=== PATIENT | female | born 1970 | race Caucasian/White ===

== ENCOUNTER 2021-02-04 07:31 | Observation (INO) | payer BC ==
[2021-01-29 11:56] LABS: CLARITY,URINE CLEAR (Clear); COLOR,URINE YELLOW (Yellow); GLUCOSE, URINE NEGATIVE (Neg); KETONES,URINE NEGATIVE (Neg); LEUKOCYTE ESTERASE ,URINE NEGATIVE (Neg); NITRITES, URINE NEGATIVE (Neg); OCCULT BLOOD,URINE TRACE-INTACT (Neg); PROTEIN,URINE NEGATIVE (Neg); UROBILINOGEN,URINE 0.2 E.U/dL (0.2-1.0)
[2021-01-29 12:02] LABS: RBC,URINE 0-2 /HPF (0-2); UA COLLECTION TYPE NON-SPECIFIED; WBC,URINE NONE SEEN /HPF (0-4)
[2021-01-29 12:03] LABS: BACTERIA,URINE NONE SEEN /HPF (Neg); MUCUS STRANDS NONE SEEN /LPF (Neg); SQUAMOUS EPITHELIAL CELL,UR FEW /LPF (FEW)
[2021-01-29 12:03] LABS: BASOPHILS % (AUTO) 0.5 % (0-1); EOSINOPHILS # (AUTO) 0.1 X10'3 (0-0.9); EOSINOPHILS % (AUTO) 0.9 % (0-6); LYMPHOCYTES # (AUTO) 1.6 X10'3 (1.1-4.8); LYMPHOCYTES % (AUTO) 25.7 % (21-51); MEAN CORPUSCULAR HEMOGLOBIN 28.3 PG (27.0-31.0); MEAN CORPUSCULAR HGB CONC 32.7 g/dL (33.0-36.5); MEAN CORPUSCULAR VOLUME 86.7 FL (78-98); MONOCYTES # (AUTO) 0.5 X10'3 (0-0.9); MONOCYTES % (AUTO) 8.4 % (2-12); NEUTROPHILS # (AUTO) 3.9 X10'3 (1.8-7.7); NEUTROPHILS % (AUTO) 64.5 % (42-75); PRE OP HEMATOCRIT 29.4 % (35.0-45.0); PRE OP PLATELET COUNT 504 X10'3 (140-440); RED BLOOD COUNT 3.39 X10'6 (4.20-5.60); RED CELL DISTRIBUTION WIDTH 14.8 % (11.5-14.5)
[2021-01-29 12:07] LABS: PRE OP HEMOGLOBIN 9.6 g/dL (12.0-16.0)
[2021-01-29 12:09] LABS: ALBUMIN 3.6 G/DL (3.4-5.0); ALKALINE PHOSPHATASE 85 IU/L (46-116); BLOOD UREA NITROGEN 9 MG/DL (7-18); BUN/CREATININE RATIO 11.4 (6.6-38.0); CALCIUM 8.1 MG/DL (8.5-10.1); CHLORIDE 103 MMOL/L (99-107); CREATININE 0.79 MG/DL (0.40-0.90); PRE OP ALT 18 U/L (30-65); PRE OP ANION GAP 9 (8-16); PRE OP AST 14 U/L (10-37); PRE OP BILIRUB, TOTAL 0.2 MG/DL (0.0-1.0); PRE OP GLUCOSE 94 MG/DL (70-104); PRE OP POTASSIUM 3.8 MMOL/L (3.4-5.1); PRE OP SODIUM 140 MMOL/L (135-145); TOTAL PROTEIN 7.2 G/DL (6.4-8.2); eGFR 76 ML/MIN
[2021-01-29 12:25] LABS: HCG SERUM QL NEGATIVE
[2021-02-04] VITALS (12 sets, daily range): BP systolic 101–140; BP diastolic 54–73
[~2021-02-04] VITALS: Ht 157.5 cm; Wt 62.0 kg
[~2021-02-04 07:31] MED LIST: MULT-1085 PO; albuterol 2.5 MG/3 ML nebule NEB ONE; ceFOXitin 2GM-NS 100mL ADDvant 100 ML IV ONE; famotidine 20mg tablet PO ONE; ringers solution, lacted 1,000 ML IV SCH
[2021-02-04] MEDS ORDERED: BUPIVAcaine HCl 0.25%/EPInephrine 1:200,000 inj. 10 ML VIAL ONE (09:49)
[2021-02-04] MEDS ORDERED: vasoPRESSIN 20 units/ml inj. ONE (09:49)
[2021-02-04] MEDS ORDERED: BUPIVAcaine/PF 2.5mg/ml (0.25%) 10ml vial ONE (09:49)
[2021-02-04] MEDS ORDERED: fentaNYL /PF 50mcg/ml 5ml ampule ONE (10:10)
[2021-02-04] MEDS ORDERED: ondansetron/PF 4mg/2ml inj IV PRN ×2 (10:15→12:10)
[2021-02-04] MEDS ORDERED: proCHLORperazine 10 MG/2 ml inj IV PRN (10:15)
[2021-02-04] MEDS ORDERED: meperidine/PF 25mg/ml syringe IV PRN ×3 (10:15)
[2021-02-04] MEDS ORDERED: morphine 2 MG/ML inj. syringe IV PRN (10:15)
[2021-02-04] MEDS ORDERED: ringers solution, lacted 1,000 ML IV SCH (10:15)
[2021-02-04] MEDS ORDERED: morphine 4 MG/ML inj SYRINge IV PRN (10:15)
[2021-02-04] MEDS ORDERED: sevoflurane 250ml liquid IH ONE (10:22)
[2021-02-04] MEDS ORDERED: propofol inj 20 ML IV ONE (11:33)
[2021-02-04] MEDS ORDERED: ondansetron/PF 4mg/2ml inj ONE (11:33)
[2021-02-04] MEDS ORDERED: LIDOcaine 2% (20mg/ml) 5ml vial ONE (11:33)
[2021-02-04] MEDS ORDERED: glycopyrrolate 0.2mg/ml inj ONE (11:33)
[2021-02-04] MEDS ORDERED: dexamethasone sod phosphate 4mg/ml inj. ONE (11:33)
[2021-02-04] MEDS ORDERED: acetaminophen 1,000mg/100ml IV 100 ML IV ONE (11:33)
[2021-02-04] MEDS ORDERED: rocuronium 10mg/ml inj IV ONE (11:33)
[2021-02-04] MEDS ORDERED: neostigmine methylsulfate 1 MG/ML 10ml vial ONE (11:33)
[2021-02-04] MEDS ORDERED: LORazepam 2 mg/ml vial IV PRN (12:10)
[2021-02-04] MEDS ORDERED: diphenhydrAMINE 50 mg/ml inj IV PRN (12:10)
[2021-02-04] MEDS ORDERED: normal saline 500ml IV soln 500 ML IV PRN (12:10)
[2021-02-04] MEDS ORDERED: LORazepam 1 MG tablet PO PRN (12:10)
[2021-02-04] MEDS ORDERED: HYDROcodone/acetaminophen 10/325mg tab PO PRN (12:10)
[2021-02-04] MEDS ORDERED: metoclopramide 5 mg/ml inj IV PRN (12:10)
[2021-02-04] MEDS ORDERED: estradiol 0.1mg patch.TDWK TD SCH (12:10)
[2021-02-04] MEDS ORDERED: magnesium hydroxide 30ml (MOM) UD suspension PO PRN (12:10)
[2021-02-04] MEDS ORDERED: temazepam 15mg capsule PO PRN (12:10)
[2021-02-04] MEDS ORDERED: ketorolac trometh. 30mg/ml inj. IV PRN (12:10)
--- NOTE | 2021-02-04 13:20 | NUR ---
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
--- NOTE | 2021-02-04 13:55 | NUR ---
Received pr from recovery via bed. Pt awake c/o severe urge to urinate. Checked patency of catheter and bladder scanned with 0 residual. Will give toradol for discomfort. Spouse at bedside Call light in reach.
--- NOTE | 2021-02-04 16:00 | NUR ---
Pt persistently C/O need to urinate. urine op 300. Phoned Dr Orellana who ok'd removal of FC now instead of am. Discussed procedure for removal and treatment for inability to void after. Pt verbalized understanding.
[2021-02-04] MEDS: ringers solution, lacted 1,000 ML IV SCH ×2 (17:35→20:10)
--- NOTE | 2021-02-04 18:58 | NUR ---
Patient in room [facility]. I have received report from FREDDY Leger and had the opportunity to ask questions and assume patient care.
[2021-02-04] MEDS: docusate sod 100mg capsule PO SCH (20:00)
[2021-02-04] MEDS: HYDROcodone/acetaminophen 10/325mg tab PO PRN (20:02)
[2021-02-05] VITALS: BP 125/74
[2021-02-05] MEDS: HYDROcodone/acetaminophen 10/325mg tab PO PRN (00:12)
[2021-02-05] MEDS: ringers solution, lacted 1,000 ML IV SCH (04:10)
--- NOTE | 2021-02-05 06:13 | NUR ---
Problems reprioritized. Patient report given, questions answered & plan of care reviewed with FREDDY Leger.
[2021-02-05 07:00] VITALS: BP 111/60
[2021-02-05 07:10] LABS: BASOPHILS % (AUTO) 0.2 % (0-1); EOSINOPHILS % (AUTO) 0 % (0-6); HEMATOCRIT 22.1 % (35.0-45.0); HEMOGLOBIN 7.3 g/dl (12.0-16.0); LYMPHOCYTES # (AUTO) 1.4 X10'3 (1.1-4.8); LYMPHOCYTES % (AUTO) 16.7 % (21-51); MEAN CORPUSCULAR HEMOGLOBIN 27.8 PG (27.0-31.0); MEAN CORPUSCULAR HGB CONC 32.9 g/dL (33.0-36.5); MEAN CORPUSCULAR VOLUME 84.5 FL (78-98); MEAN PLATELET VOLUME 6.8 FL (7.4-10.4); MONOCYTES # (AUTO) 0.9 X10'3 (0-0.9); MONOCYTES % (AUTO) 10.5 % (2-12); NEUTROPHILS % (AUTO) 72.6 % (42-75); PLATELET COUNT 294 X10'3 (140-440); RED BLOOD COUNT 2.62 X10'6 (4.20-5.60); WHITE BLOOD COUNT 8.2 X10'3 (4.5-11.0)
[2021-02-05 07:28] LABS: ALBUMIN 2.7 G/DL (3.4-5.0); ANION GAP 8 (8-16); BLOOD UREA NITROGEN 6 MG/DL (7-18); BUN/CREATININE RATIO 7.4 (6.6-38.0); CALCIUM 7.3 MG/DL (8.5-10.1); CHLORIDE 106 MMOL/L (99-107); CREATININE 0.81 MG/DL (0.40-0.90); GLUCOSE 92 MG/DL (70-104); POTASSIUM 3.7 MMOL/L (3.5-5.1); SODIUM 139 MMOL/L (135-145); TOTAL CARBON DIOXIDE 24.7 MMOL/L (24-32); eGFR 74 ML/MIN
[2021-02-05] MEDS ORDERED: multivitamins, therapeutics tablet PO SCH (08:00)
[2021-02-05] MEDS ORDERED: enoxaparin 40mg/0.4ml syringe SQ SCH (08:00)
[2021-02-05] MEDS: docusate sod 100mg capsule PO SCH (08:30)
== END 2021-02-05 11:20 | disposition home or self-care (01) ==
LOC: PAS 07:31 → SUR 3N 14:07 → PAS 14:10 → SUR 3N 14:11
PROVIDERS: ADMIT Obstetrics & Gynecology Obstetrics; ATTEND Obstetrics & Gynecology Obstetrics
DX: D25.9 Leiomyoma of uterus, unspecified (principal); N83.291 Other ovarian cyst, right side; N94.10 Unspecified dyspareunia; N92.0 Excessive and frequent menstruation with regular cycle; Z87.891 Personal history of nicotine dependence
CPT/HCPCS: 36415; 58571; 71046; 80048; 80053; 81001; 82948; 84703; 85025; 86885; 86900; 86901; 93005; 96361; 96372; 96374; 96375; G0378; J0131; J0694; J1100; J1885; J2001; J2175; J2405; J2704; J2710; J3010; J3490; J7030; J7120; A4314; A4618; A7000; J1650